=== PATIENT | male | born 1935 | race Caucasian/White ===

== ENCOUNTER 2019-12-19 08:01 | Outpatient (CLI) | payer MEDICARE ==
--- NOTE | 2019-12-19 10:21 | ULT ---
RIGHT UPPER QUADRANT ULTRASOUND: Date: 12/19/2019 HISTORY: Right upper quadrant pain. Polycystic kidney disease. FINDINGS: There is a 1.5 cm cyst in the right lobe of the liver. The pancreas is not well visualized due to ove rlying bowel gas. Multiple cysts are seen in the right kidney, the largest is in the inferior pole me asuring 13.4 x 12.0 x 10.6 cm. No right-sided hydronephrosis seen. The pancreas is not well visualize d. No free fluid is seen in Morison's pouch. The common duct measures 4.0 mm in diameter. There is a mobile nonshadowing solid mass-like density a rising in the wall of the gallbladder with echogenic foci. This measures 2.4 x 1.2 x 1.8 cm. There is mild gallbladder wall thickening measuring 4.0 mm. No pericholecystic fluid is seen. No shadowing ga llstones are identified. IMPRESSION: 1. Liver cyst. 2. Multiple right renal cysts. 3. Findings suspicious for gallbladder mass. CT scan of the abdomen with and without IV contrast is recommended. POS: JOSE CA
== END 2019-12-19 08:02 | disposition home or self-care (01) ==
LOC: SCSULT 08:01
PROVIDERS: ATTEND Family Medicine
DX: R10.11 Right upper quadrant pain (principal); K76.89 Other specified diseases of liver; N28.1 Cyst of kidney, acquired
CPT/HCPCS: 76705

== ENCOUNTER 2019-12-22 07:58 | Outpatient (CLI) | payer MEDICARE ==
--- NOTE | 2019-12-22 12:46 | CT ---
CT ABDOMEN AND PELVIS WITH AND WITHOUT IV CONTRAST 12/22/2019 CLINICAL INFORMATION: Gallbladder mass seen on ultrasound. COMPARISON: Right upper quadrant ultrasound 12/19/[address] abdomen and pelvis on 11/07/2016 Technique: Multiple contiguous axial CT images are obtained through the abdomen and pelvis with IV contrast. Cor onal reformatted images are provided. FINDINGS: Lower Chest: Linear bibasilar scarring and atelectasis is again present. An approximately 4 mm pulmon mandy nodule is seen in the lateral aspect of the lingula. This area was not imaged on prior exam. Tiny right pleural effusion versus pleural thickening is present. Vessels: Vascular calcifications are seen in the coronary arteries as well as involving the abdominal aorta and iliac arteries. Abdomen: Portal vein:Patent Gallbladder: Incompletely distended. No obvious enhancing mass is seen in the gallbladder lumen to co rrespond to sonographic abnormality. As a result, follow-up ultrasound examination is recommended. Liver: The larger hypodense cystic lesion in the left hepatic lobe has resolved with only minimal het erogeneity in this region likely due to decompression of the cyst. Scattered subcentimeter too small to characterize hypodense lesions are again seen in each lobe the liver statistically likely re presenting cysts. There is mild nonspecific intrahepatic biliary ductal dilatation. The common duct does not appear dilated. Spleen: within normal limits. Pancreas: within normal limits. Adrenals: within normal limits. Kidneys: Multiple bilateral renal cysts are again seen with largest cyst in the inferior pole right k idney measuring 13.6 cm in greatest dimensions. Minimal thin linear calcifications are seen along the posterior margin of the large cyst. No enhancing renal mass is present. A nonobstructing 3 mm gael culus is again seen in the inferior pole left kidney. Bowel: Colonic diverticulosis is present greatest involving the sigmoid colon. Loops of opacified sma ll bowel are normal in caliber. Appendix: Not visualized, there are no secondary signs to suggest appendicitis. Peritoneum: No ascites or free air; no fluid collection. Mesentery and Retroperitoneum: No enlarged mesenteric or retroperitoneal lymph nodes. Abdominal Wall: Tiny fat-containing umbilical hernia is again present. Pelvis: Reproductive Organs: No pelvic masses. Pelvis within normal limits. Bladder: Not well assessed due to significant streak artifact from left total hip prosthesis. Bones: Left total hip prosthesis with cerclage wires transfixing the proximal aspect of the femoral c omponent and greater trochanter with suggestion of fracture of the cerclage wires, stable from prior exam. Multilevel degenerative changes are seen throughout the spine. IMPRESSION: 1. No acute findings are seen in the abdomen or pelvis. 2. No enhancing mass is seen in the gallbladder to correspond to the sonographic abnormality. While f indings could again be related to mass in the gallbladder, findings could potentially be related to tumefactive sludge. Follow-up sonographic evaluation in 4-6 weeks is recommended. 3. Interval decompression of a left hepatic lobe cyst. There is area of heterogeneity now seen in lat eral segment left hepatic lobe likely attributable to site of prior cyst. Stable hypodense lesions are also again seen scattered in the liver probably attributable to cysts. 4. Nonspecific minimal intrahepatic biliary duct dilatation. 5. Stable bilateral renal cysts with nonobstructing left renal calculus. 6. Colonic diverticulosis. 7. Nonspecific 4 mm pulmonary nodule in the lingula with stable scarring at each lung base and tiny r ight pleural effusion versus pleural thickening present.
== END 2019-12-22 07:59 | disposition home or self-care (01) ==
LOC: SCSCT 07:58
PROVIDERS: ATTEND Family Medicine
DX: K82.8 Other specified diseases of gallbladder (principal); K76.89 Other specified diseases of liver; N28.1 Cyst of kidney, acquired; N20.0 Calculus of kidney; K57.30 Diverticulosis of large intestine without perforation or abscess without bleeding; R91.1 Solitary pulmonary nodule; J98.4 Other disorders of lung; K76.9 Liver disease, unspecified; K83.8 Other specified diseases of biliary tract
CPT/HCPCS: 74178

== ENCOUNTER 2019-12-27 08:31 | Outpatient (CLI) | payer MEDICARE ==
--- NOTE | 2019-12-27 12:15 | NM ---
NUCLEAR MEDICINE HEPATOBILIARY SCAN WITH EJECTION FRACTION: Date: 12/27/2019 HISTORY: Right upper quadrant pain. Epigastric pain. TECHNIQUE/FINDINGS: Patient was injected with 5.4 mCi technetium-99m MDP intravenously. Following injection, there is pro mpt uptake of the tracer by the liver with rapid excretion into the biliary tree and gallbladder, and emptying into the small bowel. At approximately the 1 hour time interval, the patient was given 8 oz . of Ensure PO. Gallbladder ejection fraction equals 76%. IMPRESSION: 1. Unremarkable nuclear medicine hepatobiliary scan and ejection fraction. 2. Ejection fraction equals 76%. POS: RRE
== END 2019-12-27 08:32 | disposition home or self-care (01) ==
LOC: NM 08:31
PROVIDERS: ATTEND Surgery
DX: R10.11 Right upper quadrant pain (principal)
CPT/HCPCS: 78227; A9537

== ENCOUNTER 2020-01-31 08:00 | Outpatient (CLI) | payer MEDICARE ==
--- NOTE | 2020-01-31 09:09 | ULT ---
ULTRASOUND GALLBLADDER RIGHT UPPER QUADRANT: CLINICAL HISTORY: Right upper quadrant pain.. COMPARISON: 12/19/2019 . FINDINGS: Pancreas: Obscured by bowel gas. Liver: Left hepatic lobe is poorly defined. Visualized right hepatic parenchyma has a normal echotext ure. No solid hepatic masses or intrahepatic biliary dilatation. There is a 1.2 x 1.5 x 1.1 cm cyst in the right hepatic lobe. Right hepatic lobe: 14.1 cm. Gallbladder: There does appear to be sludge within the lumen of the gallbladder. Possible 0.6-1.0 cm sludge ball. Zambrano's sign:Negative. Portal Vein: Patent. Appropriate directional flow. Bile ducts: Common bile duct is poorly defined due to bowel gas. Right kidney: No hydronephrosis. Multiple cysts.. Right kidney measures 4.7 x 5.6 x 10.9 cm in length . IMPRESSION: 1. Right renal cyst. 2. Right hepatic lobe cyst. 3. Persistent echogenic focus without shadowing in the lumen of gallbladder which may represent a slu dge ball. Correlation made with abdomen and pelvis CT 12/22/2019 does not demonstrate an associated obvious CT finding. Patient has had a negative HIDA scan. If there is concern for an intraluminal les ion, abdomen MRI may be beneficial. CODE T Transcribed Date/Time: 01/31/2020 9:12 AM
== END 2020-01-31 08:01 | disposition home or self-care (01) ==
LOC: SCSULT 08:00
PROVIDERS: ATTEND Surgery
DX: R10.11 Right upper quadrant pain (principal); K76.89 Other specified diseases of liver; N28.1 Cyst of kidney, acquired; R93.2 Abnormal findings on diagnostic imaging of liver and biliary tract
CPT/HCPCS: 76705

== ENCOUNTER 2020-06-06 07:56 | Outpatient (CLI) | payer MEDICARE ==
[2020-06-06 10:50] LABS: Mean Corpuscular Hemoglobin 31.2 pg (27.0-31.0); Mean Corpuscular Volume 94.6 fL (78.0-98.0); Mean Platelet Volume 8.5 fL (7.4-10.4); Platelet Count 131 thou/uL (130-400); RBC Distribution Width 11.9 % (11.5-14.5); Red Blood Cell (RBC) Count 4.81 mill/uL (4.70-6.10); White Blood Cell (WBC) Count 6.8 thou/uL (4.8-10.8)
[2020-06-06 11:00] LABS: ALT (SGPT) 10 U/L (8-55); AST (SGOT) 18 U/L (5-34); Alkaline Phosphatase 88 U/L (40-110); Anion Gap 12 mmol/L (10-20); BUN (Urea Nitrogen) 20 mg/dL (8.4-25.7); BUN/Creatinine Ratio 13.51; Bilirubin, Direct 0.4 mg/dL (0.1-0.3); Bilirubin, Total 0.9 mg/dL (0.2-1.2); Calc. Creatinine Clearance 0 mL/min (70-130); Calcium 8.6 mg/dL (7.8-10.44); Carbon Dioxide 26 mmol/L (23-31); Chloride 108 mmol/L (98-107); Estimated GFR-MDRD 45; Glucose 97 mg/dL (83-110); Phosphorus 3.6 mg/dL (2.3-4.7); Potassium 4.4 mmol/L (3.5-5.1); Protein, Total 6.1 g/dL (5.8-8.1); Sodium 142 mmol/L (136-145); Uric Acid 4.8 mg/dL (3.5-7.2)
[2020-06-06 11:40] LABS: Protein, Urine Random Quant Less than 10 mg/dL (1-14)
[2020-06-06 11:44] LABS: Bilirubin Negative (Negative); Blood, Urine Negative (Negative); Clarity Clear (Clear); Glucose, Urine (Dipstick) Normal (Negative); Ketone, Urine Negative (Negative); Leukocyte Negative Leu/uL (Negative); Nitrite Negative (Negative); Protein, Urine (Dipstick) Negative (Neg-Trace); Specific Gravity, Urine 1.015 (1.002-1.036); Urobilinogen Normal mg/dL (Less than 2); pH, Urine 6.5 (5.0-9.0)
--- NOTE | 2020-06-06 13:44 | ULT ---
RENAL ULTRASOUND WITH RENAL DOPPLER: INDICATIONS: Polycystic kidney disease with decreasing renal function. Ultrasound Doppler study is performed of the kidneys with color Doppler, spectral analysis and veloci ty recordings of the renal arteries. Correlation made to CT abdomen 12/22/19 which demonstrated multiple bilateral cysts with a large right renal cyst inferiorly measuring up to 13 cm and the largest left renal cyst measuring 10 cm. FINDINGS: Ultrasound images again show bilateral renal cystic lesions. Large right renal cyst inferior pole is again seen measuring 13 cm. A superior pole cyst on the right measures 7 cm. The large left renal cys t is again seen measuring up to 10 cm. Right renal artery/aortic ratio: 1.55 Right renal arcuate artery resistive index: 0.79 Left renal artery/aortic ratio: 2.9 Left renal arcuate artery resistive index: 0.83 The bladder is imaged and is mildly distended and appears unremarkable by ultrasound. IMPRESSION: 1. Numerous bilateral renal cysts again seen corresponding to the recent CT of 12/22/19. 2. Arterial Doppler measurements given above. POS: AGW
== END 2020-06-06 07:57 | disposition home or self-care (01) ==
LOC: SCSULT 07:56
PROVIDERS: ATTEND Internal Medicine Nephrology
DX: I13.10 Hypertensive heart and chronic kidney disease without heart failure, with stage 1 through stage 4 chronic kidney disease, or unspecified chronic kidney disease (principal); N18.9 Chronic kidney disease, unspecified; N40.0 Benign prostatic hyperplasia without lower urinary tract symptoms; E78.5 Hyperlipidemia, unspecified; M19.90 Unspecified osteoarthritis, unspecified site; I73.9 Peripheral vascular disease, unspecified; N20.0 Calculus of kidney; K21.9 Gastro-esophageal reflux disease without esophagitis; K27.9 Peptic ulcer, site unspecified, unspecified as acute or chronic, without hemorrhage or perforation; K57.90 Diverticulosis of intestine, part unspecified, without perforation or abscess without bleeding; Q61.2 Polycystic kidney, adult type; Q44.6 Cystic disease of liver; N28.1 Cyst of kidney, acquired
CPT/HCPCS: 36415; 76770; 80069; 80076; 81003; 82570; 84156; 84550; 85027; 85652; 93975

== ENCOUNTER 2020-07-02 10:31 | Outpatient (CLI) | payer MEDICARE ==
--- NOTE | 2020-07-02 11:19 | RAD ---
Exam: XR Elbow Rt 4 View STANDARD HISTORY: Severe pain right elbow after a fall. COMPARISON: None FINDINGS: Degenerative changes are seen about the right elbow with osteophyte formation seen including at the f emoral head. However, there does appear to be a nondisplaced fracture involving the radial head neck junction. No additional fracture is seen, and there is no dislocation. A joint effusion is prese nt. Mild subcutaneous soft tissue swelling is seen posterior to the elbow. IMPRESSION: 1. Nondisplaced fracture right radial head neck junction with associated joint effusion. 2. Degenerative changes right elbow.
== END 2020-07-02 10:32 | disposition home or self-care (01) ==
LOC: SCSRAD 10:31
PROVIDERS: ATTEND Family Medicine
DX: M25.521 Pain in right elbow (principal); S52.124A Nondisplaced fracture of head of right radius, initial encounter for closed fracture; S52.134A Nondisplaced fracture of neck of right radius, initial encounter for closed fracture; M25.421 Effusion, right elbow; M19.021 Primary osteoarthritis, right elbow

== ENCOUNTER 2024-02-11 10:54 | Outpatient (CLI) | payer MEDICARE | END 2024-02-11 10:55 | disposition home or self-care (01) | LOC: SCSRAD 10:54 | PROVIDERS: ATTEND Family Medicine | DX: R07.81 Pleurodynia (principal); S22.41XA Multiple fractures of ribs, right side, initial encounter for closed fracture ==